=== PATIENT | female | born 1955 | race Caucasian/White ===

== ENCOUNTER 2018-03-25 18:04 | Inpatient (IN) | payer MEDICAID ==
[~2018-03-25] VITALS: Ht 157.5 cm; Wt 56.9 kg
[~2018-03-25 18:04] MED LIST: ASPI-496 PO; ASPI-621 PO; ASPI-650 PO; ATOR-2 PO; ATOR20TA PO; ATOR40TA PO; CARV3.1212 PO; CLOP75TA52 PO; DOCU-131 PO; ENAL5TAB70 PO; FURO-93 PO; HYDR-3245 PO; LISI5TAB7 PO; METO25TA35 PO; PANT40TA5 PO; POTA10TA5 PO; PRAS10TA4 PO
[2018-03-25] MEDS ORDERED: AMLO10TA6 PO (18:52)
[2018-03-25] MEDS ORDERED: aspirin PO (18:54)
[2018-03-25] MEDS ORDERED: carvedilol PO (18:54)
[2018-03-25 19:34] LABS: BASOPHILS # (AUTO) 0.05 x10^3/uL (0-0.1); BASOPHILS % (AUTO) 1 % (0-1); EOSINOPHILS # (AUTO) 0.16 x10^3/uL (0-0.4); EOSINOPHILS % (AUTO) 2 % (1-7); LYMPHOCYTES # (AUTO) 2.15 x10^3/uL (1-3.4); LYMPHOCYTES % (AUTO) 27 % (22-44); MD NO; MEAN CORPUSCULAR HEMOGLOBIN 30.8 pg (27.0-34.8); MEAN CORPUSCULAR HGB CONC 33.8 g/dL (32.4-35.8); MEAN CORPUSCULAR VOLUME 90.9 fL (80-100); MEAN PLATELET VOLUME 7.4 fL (7.4-10.4); MONOCYTES # (AUTO) 0.45 x10^3/uL (0.2-0.8); MONOCYTES % (AUTO) 6 % (2-9); NEUTROPHILS # (AUTO) 5.13 x10^3/uL (1.8-6.8); NEUTROPHILS % (AUTO) 65 % (42-75); PLATELET COUNT 387 x10^3/uL (130-400); RED BLOOD COUNT 4.86 x10^6/uL (3.82-5.3); RED CELL DISTRIBUTION WIDTH 13.8 % (9.6-15.2)
[2018-03-25 19:41] LABS: ALANINE AMINOTRANSFERASE 22 U/L (12-78); ALBUMIN 3.5 g/dL (3.4-5.0); ANION GAP 8 mmol/L (5-15); CALCIUM 8.4 mg/dL (8.5-10.1); CHLORIDE 111 mmol/L (98-107); CREATININE 0.72 mg/dL (0.55-1.02)
[2018-03-25 19:45] LABS: ALKALINE PHOSPHATASE 131 U/L (45-117); BILIRUBIN,TOTAL 0.2 mg/dL (0.2-1.0); TOTAL PROTEIN 7.2 g/dL (6.4-8.2)
[2018-03-25 19:46] LABS: TROPONIN I 0.137 ng/mL (0.000-0.045)
[2018-03-25] MEDS ORDERED: morphine SULFATE 10 MG/ML, 1ML IV PRN (21:00)
[2018-03-25] MEDS ORDERED: NITROGLYCERIN 0.4 MG BOTTLE (25 TABS) SL PRN (21:00)
[2018-03-25] MEDS ORDERED: NITROGLYCERIN 0.4 MG/SPRAY SL PRN (21:00)
[2018-03-25] MEDS ORDERED: ENOXAPARIN 40 MG/0.4 ML SQ SCH (21:00)
[2018-03-25] MEDS ORDERED: ACETAMINOPHEN 325 MG TABLET PO PRN (21:00)
[2018-03-25 21:07] VITALS: BP 134/63
[2018-03-25] MEDS ORDERED: NICOTINE 21 MG/24 HR PATCH.TD24 TD ONE (21:30)
[2018-03-25] MEDS: SODIUM CHLORIDE FLUSH 10ML SYR IVF SCH (21:32)
[2018-03-25 22:02] LABS: CHOLESTEROL, TOTAL 172 mg/dL (140-239); TRIGLYCERIDES 193 mg/dL (50-200); VLDL CHOLESTEROL 39 mg/dL (0-25)
[2018-03-25 22:05] LABS: HDL CHOL % 25 % (28-40); HDL CHOLESTEROL (DIRECT) 43 mg/dL (40-60); LDL CHOLESTEROL,CALCULATED 90 mg/dL (54-169); LDL/HDL RATIO 2.1 (0.5-3.0); TROPONIN I 0.325 ng/mL (0.000-0.045)
[2018-03-26] VITALS (7 sets, daily range): BP systolic 112–152; BP diastolic 65–74
[2018-03-26 01:10] LABS: MEAN CORPUSCULAR HEMOGLOBIN 30.5 pg (27.0-34.8); MEAN CORPUSCULAR HGB CONC 33.7 g/dL (32.4-35.8); MEAN CORPUSCULAR VOLUME 90.4 fL (80-100); MEAN PLATELET VOLUME 7.7 fL (7.4-10.4); PLATELET COUNT 348 x10^3/uL (130-400); RED BLOOD COUNT 4.65 x10^6/uL (3.82-5.3); RED CELL DISTRIBUTION WIDTH 13.7 % (9.6-15.2)
[2018-03-26 01:20] LABS: ANION GAP 6 mmol/L (5-15); CALCIUM 8.7 mg/dL (8.5-10.1); CHLORIDE 113 mmol/L (98-107); CREATININE 0.62 mg/dL (0.55-1.02)
[2018-03-26] MEDS: ASPIRIN 325 MG TABLET EC PO SCH (06:20)
[2018-03-26] MEDS: CARVEDILOL 3.125 MG TABLET PO SCH ×2 (06:20→18:06)
[2018-03-26] MEDS ORDERED: HEPARIN 25,000 UNITS/500ML PMX 500 ML IV PRN (08:30)
[2018-03-26] MEDS ORDERED: HEPARIN 5,000 UNITS/ML, 1ML IV ONE (08:30)
[2018-03-26] MEDS: SODIUM CHLORIDE FLUSH 10ML SYR IVF SCH ×2 (09:01→20:17)
[2018-03-26] MEDS: AMLODIPINE 10 MG TAB PO SCH (09:01)
[2018-03-26] MEDS ORDERED: SODIUM CHLORIDE 0.9% 1,000 ML IV ONE (09:28)
[2018-03-26 16:49] LABS: ANION GAP 8 mmol/L (5-15); CHLORIDE 110 mmol/L (98-107)
[2018-03-26] MEDS: HEPARIN 5,000 UNITS/ML, 1ML IV PRN (16:49)
[2018-03-26 16:51] LABS: ALBUMIN 3.6 g/dL (3.4-5.0)
[2018-03-26] MEDS: ATORVASTATIN 80 MG TABLET PO SCH (20:16)
[2018-03-27] MEDS: HEPARIN 5,000 UNITS/ML, 1ML IV PRN (00:02)
[2018-03-27 02:04] VITALS: BP 119/65
[2018-03-27] MEDS: ASPIRIN 325 MG TABLET EC PO SCH (05:13)
[2018-03-27 05:14] VITALS: BP 154/71
[2018-03-27] MEDS: CARVEDILOL 3.125 MG TABLET PO SCH ×2 (05:14→17:35)
[2018-03-27 06:19] LABS: INTERNATIONAL NORMALIZED RATIO 0.99 (0.93-1.1); PROTHROMBIN TIME 10.3 Seconds (9.6-11.5)
[2018-03-27 06:29] VITALS: BP 144/74
[2018-03-27 06:50] LABS: BASOPHILS # (AUTO) 0.04 x10^3/uL (0-0.1); BASOPHILS % (AUTO) 1 % (0-1); EOSINOPHILS % (AUTO) 1 % (1-7); LYMPHOCYTES # (AUTO) 2.95 x10^3/uL (1-3.4); LYMPHOCYTES % (AUTO) 42 % (22-44); MD NO; MEAN CORPUSCULAR HEMOGLOBIN 30.6 pg (27.0-34.8); MEAN CORPUSCULAR HGB CONC 33.6 g/dL (32.4-35.8); MEAN CORPUSCULAR VOLUME 91.2 fL (80-100); MEAN PLATELET VOLUME 8.2 fL (7.4-10.4); MONOCYTES # (AUTO) 0.45 x10^3/uL (0.2-0.8); MONOCYTES % (AUTO) 6 % (2-9); NEUTROPHILS # (AUTO) 3.42 x10^3/uL (1.8-6.8); NEUTROPHILS % (AUTO) 49 % (42-75); PLATELET COUNT 305 x10^3/uL (130-400); RED BLOOD COUNT 4.58 x10^6/uL (3.82-5.3); RED CELL DISTRIBUTION WIDTH 14.2 % (9.6-15.2)
[2018-03-27 06:57] LABS: ALBUMIN 3.2 g/dL (3.4-5.0); ANION GAP 8 mmol/L (5-15); CALCIUM 8.9 mg/dL (8.5-10.1); CHLORIDE 112 mmol/L (98-107); CREATININE 0.55 mg/dL (0.55-1.02)
[2018-03-27] MEDS: SODIUM CHLORIDE FLUSH 10ML SYR IVF SCH ×2 (08:13→20:33)
[2018-03-27] MEDS: AMLODIPINE 10 MG TAB PO SCH (08:13)
[2018-03-27] MEDS ORDERED: FENTANYL PF 100 MCG/2ML ONE ×2 (12:39→13:14)
[2018-03-27] MEDS ORDERED: MIDAZOLAM 1 MG/ML, 5ML ONE ×2 (12:39→13:14)
[2018-03-27] MEDS ORDERED: TICAGRELOR 90 MG TABLET ONE (12:40)
[2018-03-27] MEDS ORDERED: VERAPAMIL 2.5 MG/ML, 2ML ONE (12:40)
[2018-03-27] MEDS ORDERED: BIVALIRUDIN 250 MG ONE ×2 (12:40→13:14)
[2018-03-27] MEDS ORDERED: HEPARIN 1,000 UNITS/ML, 10ML ONE (12:40)
[2018-03-27] MEDS ORDERED: LIDOCAINE/PF 1%, 30ML ONE (13:14)
[2018-03-27] MEDS ORDERED: PRASUGREL 10 MG TABLET ONE (14:20)
[2018-03-27] MEDS ORDERED: SODIUM CHLORIDE 0.9% 1,000 ML IV SCH (14:29)
[2018-03-27] MEDS ORDERED: BIVALIRUDIN 250 MG in DEXTROSE 5% 100 ML IV SCH (14:29)
[2018-03-27 19:51] VITALS: BP 129/71
[2018-03-27] MEDS: ATORVASTATIN 80 MG TABLET PO SCH (20:33)
[2018-03-28 01:31] VITALS: BP 128/63
[2018-03-28 04:38] LABS: BASOPHILS # (AUTO) 0.05 x10^3/uL (0-0.1); BASOPHILS % (AUTO) 1 % (0-1); EOSINOPHILS # (AUTO) 0.13 x10^3/uL (0-0.4); EOSINOPHILS % (AUTO) 2 % (1-7); LYMPHOCYTES # (AUTO) 2.33 x10^3/uL (1-3.4); LYMPHOCYTES % (AUTO) 33 % (22-44); MD NO; MEAN CORPUSCULAR HEMOGLOBIN 30.9 pg (27.0-34.8); MEAN CORPUSCULAR HGB CONC 34.3 g/dL (32.4-35.8); MEAN CORPUSCULAR VOLUME 90.3 fL (80-100); MEAN PLATELET VOLUME 7.6 fL (7.4-10.4); MONOCYTES # (AUTO) 0.55 x10^3/uL (0.2-0.8); MONOCYTES % (AUTO) 8 % (2-9); NEUTROPHILS # (AUTO) 4.11 x10^3/uL (1.8-6.8); NEUTROPHILS % (AUTO) 57 % (42-75); PLATELET COUNT 282 x10^3/uL (130-400); RED BLOOD COUNT 4.54 x10^6/uL (3.82-5.3); RED CELL DISTRIBUTION WIDTH 13.8 % (9.6-15.2)
[2018-03-28 04:51] LABS: ALBUMIN 3.2 g/dL (3.4-5.0); ANION GAP 8 mmol/L (5-15); CALCIUM 8.8 mg/dL (8.5-10.1); CHLORIDE 112 mmol/L (98-107)
[2018-03-28 04:53] LABS: CREATININE 0.68 mg/dL (0.55-1.02)
[2018-03-28] MEDS: CARVEDILOL 3.125 MG TABLET PO SCH (05:04)
[2018-03-28] MEDS: ASPIRIN 325 MG TABLET EC PO SCH (05:04)
[2018-03-28 05:05] VITALS: BP 120/71
[2018-03-28] MEDS ORDERED: POTASSIUM CHLORIDE 20 MEQ TAB.ER.PRT PO ONE (06:30)
[2018-03-28 07:46] VITALS: BP 123/71
[2018-03-28] MEDS: SODIUM CHLORIDE FLUSH 10ML SYR IVF SCH (07:59)
[2018-03-28] MEDS: AMLODIPINE 10 MG TAB PO SCH (07:59)
[2018-03-28] MEDS ORDERED: PRASUGREL 10 MG TABLET PO SCH (09:00)
[2018-03-28] MEDS ORDERED: LISINOPRIL 10 MG TABLET PO SCH (09:30)
[2018-03-28] MEDS ORDERED: LISI-167 PO (11:16)
[2018-03-28] MEDS ORDERED: PRAS10TA4 PO (11:16)
[2018-03-28] MEDS ORDERED: ASPI-621 PO (11:16)
[2018-03-28] MEDS ORDERED: CARV3.1212 PO (11:16)
[2018-03-28] MEDS ORDERED: AMLO5TAB7 PO (11:16)
[2018-03-28 12:37] VITALS: BP 147/69
[2018-03-29] MEDS ORDERED: ASPIRIN 81 MG TABLET EC PO SCH (06:00)
[2018-03-29] MEDS ORDERED: AMLODIPINE 5 MG TABLET PO SCH (09:00)
== END 2018-03-28 15:05 | disposition home or self-care (01) | DRG 247 ==
LOC: ED 20:24 → EDIP 20:39 → 5SO 20:43 → DCLOUNGE 03-28 14:45
PROVIDERS: ADMIT Internal Medicine; ATTEND Internal Medicine
PROC: 0271356 Dilation of Coronary Artery, Two Arteries, Bifurcation, with Two Drug-eluting Intraluminal Devices, Percutaneous Approach (ICD-10-PCS; principal; 2018-03-27)
PROC: 4A023N7 Measurement of Cardiac Sampling and Pressure, Left Heart, Percutaneous Approach (ICD-10-PCS; 2018-03-27)
PROC: B2111ZZ Fluoroscopy of Multiple Coronary Arteries using Low Osmolar Contrast (ICD-10-PCS; 2018-03-27)
PROC: B2151ZZ Fluoroscopy of Left Heart using Low Osmolar Contrast (ICD-10-PCS; 2018-03-27)
PROC: B2181ZZ Fluoroscopy of Left Internal Mammary Bypass Graft using Low Osmolar Contrast (ICD-10-PCS; 2018-03-27)
PROC: B21F1ZZ Fluoroscopy of Other Bypass Graft using Low Osmolar Contrast (ICD-10-PCS; 2018-03-27)
DX: I21.4 Non-ST elevation (NSTEMI) myocardial infarction (principal); I25.810 Atherosclerosis of coronary artery bypass graft(s) without angina pectoris; E78.5 Hyperlipidemia, unspecified; F17.210 Nicotine dependence, cigarettes, uncomplicated; I10 Essential (primary) hypertension; J44.9 Chronic obstructive pulmonary disease, unspecified; K21.9 Gastro-esophageal reflux disease without esophagitis; I25.5 Ischemic cardiomyopathy; R79.1 Abnormal coagulation profile; Z79.82 Long term (current) use of aspirin; Z82.49 Family history of ischemic heart disease and other diseases of the circulatory system; Z82.5 Family history of asthma and other chronic lower respiratory diseases; Z83.3 Family history of diabetes mellitus; I25.2 Old myocardial infarction; Z71.6 Tobacco abuse counseling
CPT/HCPCS: 36415; 93459; 99285; C9600; 71045; 80048; 80053; 80061; 82040; 83735; 84484; 85025; 85027; 85520; 85610; 85730; 93005; 99156; 99157; C1760; C1769; C1894; G0378; J0583; J1644; J2250; J3010; J3490; C1874; C1887; J7030; Q9967

== ENCOUNTER → 2018-07-26 | Outpatient (CLI) | payer MEDICAID ==
[~2018-07-26] MED LIST changes: +AMLO-150 PO; +AMLO10TA8 PO; -ASPI-621 PO; +ASPI81TA45 PO; +LISI-167 PO; +aspirin PO; +carvedilol PO
== END | disposition home or self-care (01) ==
LOC: CFH 10:40
PROVIDERS: ATTEND Internal Medicine Cardiovascular Disease
DX: I08.0 Rheumatic disorders of both mitral and aortic valves (principal); Z95.1 Presence of aortocoronary bypass graft; Z95.818 Presence of other cardiac implants and grafts
CPT/HCPCS: 93306

== ENCOUNTER 2018-11-14 21:34 | Emergency (ER) | payer MEDICAID ==
[~2018-11-14] VITALS: Ht 157.5 cm; Wt 63.0 kg
--- NOTE | 2018-11-14 22:36 | NUR ---
ASSUMED CARE OF PATIENT. PATIENT REPORTS CENTER CHEST/LEFT SHOULDER PAIN AFTER TAKING SOME ATARAX. CHEST PAIN NOW RESOLVED. VS STABLE. CARDIAC MONTIOR ON. NSR NOTED. FAMILY AT BEDSIDE. CALL LIGHT IN PLACE. WILL CONTINUE TO MONITOR.
[2018-11-14 23:05] VITALS: BP 139/58
--- NOTE | 2018-11-14 23:10 | NUR ---
PT RESTING IN ROOM. REGULAR RESP. NO ACUTE DISTRESS NOTED. VS STABLE. 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 NSR NOTED. FAMILY AT BEDSIDE. WILL CONTINUE TO MONITOR.
[2018-11-14 23:43] LABS: BASOPHILS # (AUTO) 0.03 x10^3/uL (0-0.1); BASOPHILS % (AUTO) 1 % (0-1); EOSINOPHILS # (AUTO) 0.07 x10^3/uL (0-0.4); EOSINOPHILS % (AUTO) 2 % (1-7); LYMPHOCYTES # (AUTO) 1.89 x10^3/uL (1-3.4); LYMPHOCYTES % (AUTO) 39 % (22-44); MD NO; MEAN CORPUSCULAR HEMOGLOBIN 30.4 pg (27.0-34.8); MEAN CORPUSCULAR HGB CONC 33.5 g/dL (32.4-35.8); MEAN CORPUSCULAR VOLUME 90.6 fL (80-100); MEAN PLATELET VOLUME 7.9 fL (7.4-10.4); MONOCYTES # (AUTO) 0.29 x10^3/uL (0.2-0.8); MONOCYTES % (AUTO) 6 % (2-9); NEUTROPHILS # (AUTO) 2.62 x10^3/uL (1.8-6.8); NEUTROPHILS % (AUTO) 53 % (42-75); PLATELET COUNT 266 x10^3/uL (130-400); RED BLOOD COUNT 4.37 x10^6/uL (3.82-5.3); RED CELL DISTRIBUTION WIDTH 14.2 % (9.6-15.2)
[2018-11-14 23:54] LABS: ALANINE AMINOTRANSFERASE 17 U/L (12-78); ALBUMIN 3.6 g/dL (3.4-5.0); ANION GAP 7 mmol/L (5-15); CHLORIDE 112 mmol/L (98-107); CREATININE 1.05 mg/dL (0.55-1.02)
[2018-11-14 23:58] LABS: ALKALINE PHOSPHATASE 99 U/L (45-117); BILIRUBIN,TOTAL 0.5 mg/dL (0.2-1.0); TOTAL PROTEIN 6.7 g/dL (6.4-8.2); TROPONIN I < 0.015 ng/mL (0.000-0.045)
--- NOTE | 2018-11-15 00:28 | NUR ---
DR MARKS HAS UPDATED PATIENT. PATIENT READY FOR DC
== END 2018-11-15 00:35 | disposition home or self-care (01) ==
LOC: ED 23:42
DX: R07.89 Other chest pain (principal); Z95.1 Presence of aortocoronary bypass graft; I25.2 Old myocardial infarction; K21.9 Gastro-esophageal reflux disease without esophagitis; E78.5 Hyperlipidemia, unspecified; I25.10 Atherosclerotic heart disease of native coronary artery without angina pectoris; I10 Essential (primary) hypertension
CPT/HCPCS: 36415; 71046; 80053; 84484; 85025; 93005; 99284